=== PATIENT | male | born 2000 | race African-American/Black ===

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

== ENCOUNTER 2020-04-24 13:51 | Emergency (ER) | payer OTHER, SELFPAY ==
--- NOTE | 2020-04-24 14:41 | RAD ---
EXAM: Chest PA and lateral: HISTORY: Cough. Wheezing. COMPARISON: None FINDINGS: Heart: Normal cardiac silhouette Aorta: Unremarkable Pulmonary vessels: Normal Costophrenic angles: Costophrenic angles are clear. Lungs: No consolidation or masses. Pneumothorax: No pneumothorax Osseous structures: No osseous abnormalities IMPRESSION: No acute cardiopulmonary process.
== END 2020-04-24 14:58 | disposition home or self-care (01) ==
LOC: MADERS 13:51
DX: J02.9 Acute pharyngitis, unspecified (principal); J20.8 Acute bronchitis due to other specified organisms
CPT/HCPCS: 71046

== ENCOUNTER 2020-05-09 09:36 | Emergency (ER) | payer SELFPAY ==
[2020-05-09] MEDS ORDERED: Acetaminophen 500 MG TAB ONE (10:20)
[2020-05-09] MEDS ORDERED: Ibuprofen 800 MG TAB ONE (10:20)
--- NOTE | 2020-05-09 10:31 | RAD ---
PORTABLE CHEST 1 VIEW: Date: 05/09/2020 Time: 1030 hours HISTORY: Cough. COMPARISON: 04/24/2020. FINDINGS: The heart size is normal. The lungs are well expanded without focal areas of consolidation, pneumotho races, or pleural effusions. IMPRESSION: No radiographic evidence of acute cardiopulmonary process. POS: AH
[2020-05-10 00:34] LABS: SARS-CoV-2 MS2 Positive; SARS-CoV-2 N Gene Negative; SARS-CoV-2 S Gene Negative; SARS-CoV-2 by NAA Not Detected (NotDetected); SARS-CoV-2 orf1ab Negative
== END 2020-05-09 11:20 | disposition home or self-care (01) ==
LOC: MADERS 09:36
DX: J00 Acute nasopharyngitis [common cold] (principal); Z20.828 Contact with and (suspected) exposure to other viral communicable diseases
CPT/HCPCS: 71045; 87635; 87804; U0003

== ENCOUNTER 2020-07-07 14:20 | Emergency (ER) | payer SELFPAY ==
[2020-07-07] MEDS ORDERED: Ondansetron ODT 4 MG TAB ONE (14:43)
== END 2020-07-07 14:47 | disposition home or self-care (01) ==
LOC: MADERS 14:20
DX: R11.2 Nausea with vomiting, unspecified (principal)
CPT/HCPCS: 99283; Q0162

== ENCOUNTER 2020-07-20 15:20 | Emergency (ER) | payer SELFPAY ==
[2020-07-21 05:15] LABS: SARS-CoV-2 PCR by NAA Not Detected (NotDetected)
== END 2020-07-20 16:00 | disposition home or self-care (01) ==
LOC: MADERS 15:20
DX: R10.30 Lower abdominal pain, unspecified (principal); R19.7 Diarrhea, unspecified; Z20.822 Contact with and (suspected) exposure to COVID-19
CPT/HCPCS: 87635; 99284; U0003; U0005

== ENCOUNTER 2020-09-24 17:42 | Emergency (ER) | payer SELFPAY ==
[2020-09-24 18:30] LABS: ALT (SGPT) 18 U/L (8-55); AST (SGOT) 16 U/L (5-34); Acetaminophen Less than 6.0 mcg/mL (10.0-30.0); Albumin 4.6 g/dL (3.5-5.0); Alcohol Less than 10 mg/dL (Less than 10); Alkaline Phosphatase 89 U/L (50-130); Anion Gap 17 mmol/L (10-20); BUN (Urea Nitrogen) 9 mg/dL (8.9-20.6); Band 3 % (5-11); Bilirubin, Total 0.6 mg/dL (0.2-1.2); Calc. Creatinine Clearance 0 mL/min (70-130); Calcium 9.4 mg/dL (7.8-10.44); Carbon Dioxide 26 mmol/L (22-29); Chloride 104 mmol/L (98-107); Glucose 94 mg/dL (70-105); Hemoglobin 13.9 g/dL (14.0-18.0); Hypochromia SLIGHT = 6-15 cells (100X) (0-5/hpf); Lymphocytes 24 % (28-48); MDiff Complete? YES; Mean Corpuscular Hemoglobin 30.4 pg (25.0-35.0); Mean Corpuscular Volume 94.9 fL (78.0-98.0); Mean Platelet Volume 9.2 fL (7.4-10.4); Monocytes 11 % (0-4); Neutrophil 62 % (31-61); Platelet Count 246 thou/uL (130-400); Platelet Morphology Comment Appears Adequate; Potassium 3.8 mmol/L (3.5-5.1); Protein, Total 7.6 g/dL (6.0-8.3); RBC Distribution Width 11.1 % (11.5-14.5); Red Blood Cell (RBC) Count 4.57 mill/uL (4.00-5.20); Salicylate Less than 8.0 mg/dL (15.0-30.0); Sodium 143 mmol/L (136-145); White Blood Cell (WBC) Count 6.7 thou/uL (4.8-10.8)
[2020-09-24 18:36] LABS: Bilirubin Negative (Negative); Blood, Urine Negative (Negative); Clarity Clear (Clear); Glucose, Urine (Dipstick) Negative (Negative); Ketone, Urine Negative (Negative); Leukocyte Negative (Negative); Nitrite Negative (Negative); Protein, Urine (Dipstick) Negative (Neg-Trace)
[2020-09-24 19:12] LABS: Amphetamine Not Detected (NotDetected); Barbiturates Screen Not Detected (NotDetected); Benzodiazepine Screen Not Detected (NotDetected); Cocaine Metabolite Screen Not Detected (NotDetected); Medtox Control Line Valid? VALID (VALID); Methadone Not Detected (NotDetected); Methamphetamine Not Detected (NotDetected); Opiate Screen Not Detected (NotDetected); Oxycodone Screen Not Detected (NotDetected); Phencyclidine (PCP) Not Detected (NotDetected); THC/Cannabinoid Screen Detected (NotDetected); Tricyclic Screen Not Detected (NotDetected)
== END 2020-09-24 19:24 | disposition home or self-care (01) ==
LOC: MADERS 17:42
DX: I49.3 Ventricular premature depolarization (principal)
CPT/HCPCS: 71045; 80053; 80306; 80307; 81003; 84443; 84484; 85025; 93005; 94760

== ENCOUNTER 2020-11-12 23:23 | Emergency (ER) | payer OTHER, SELFPAY ==
[2020-11-12] MEDS ORDERED: Ondansetron ODT 4 MG TAB ONE (23:43)
== END 2020-11-12 23:56 | disposition home or self-care (01) ==
LOC: MADERS 23:23
DX: A08.4 Viral intestinal infection, unspecified (principal)
CPT/HCPCS: 99283; Q0162

== ENCOUNTER 2020-11-14 09:23 | Emergency (ER) | payer SELFPAY ==
[2020-11-14] MEDS ORDERED: Loperamide HCl 2 MG CAP ONE (10:06)
== END 2020-11-14 10:10 | disposition home or self-care (01) ==
LOC: MADERS 09:23
DX: A08.4 Viral intestinal infection, unspecified (principal)
CPT/HCPCS: 99283

== ENCOUNTER 2021-07-04 19:16 | Emergency (ER) | payer SELFPAY ==
[2021-07-04] MEDS ORDERED: Ondansetron ODT 4 MG TAB ONE (19:53)
== END 2021-07-04 20:15 | disposition home or self-care (01) ==
LOC: MADERS 19:16
DX: K52.9 Noninfective gastroenteritis and colitis, unspecified (principal); F17.210 Nicotine dependence, cigarettes, uncomplicated
CPT/HCPCS: 99283; Q0162

== ENCOUNTER 2022-05-22 23:51 | Emergency (ER) | payer SELFPAY ==
[2022-05-23] MEDS ORDERED: Ondansetron ODT 4 MG TAB ONE (00:20)
[2022-05-23 00:22] LABS: Bilirubin Negative (Negative); Blood, Urine Negative (Negative); Clarity Clear (Clear); Glucose, Urine (Dipstick) Negative (Negative); Ketone, Urine Negative (Negative); Leukocyte Negative (Negative); Nitrite Negative (Negative); Protein, Urine (Dipstick) Negative (Neg-Trace); Urobilinogen 0.2 mg/dL (Less than 2)
[2022-05-23 00:33] LABS: Amphetamine Not Detected (NotDetected); Barbiturates Screen Not Detected (NotDetected); Benzodiazepine Screen Not Detected (NotDetected); Cocaine Metabolite Screen Not Detected (NotDetected); Medtox Control Line Valid? VALID (VALID); Methadone Not Detected (NotDetected); Methamphetamine Not Detected (NotDetected); Opiate Screen Not Detected (NotDetected); Oxycodone Screen Not Detected (NotDetected); Phencyclidine (PCP) Not Detected (NotDetected); THC/Cannabinoid Screen Detected (NotDetected); Tricyclic Screen Not Detected (NotDetected)
== END 2022-05-23 01:13 | disposition home or self-care (01) ==
LOC: MADERS 23:51
DX: R10.84 Generalized abdominal pain (principal); R11.2 Nausea with vomiting, unspecified; F17.210 Nicotine dependence, cigarettes, uncomplicated
CPT/HCPCS: 80306; 81003; 99284; Q0162

== ENCOUNTER 2023-03-14 02:44 | Emergency (ER) | payer SELFPAY ==
[2023-03-14] MEDS ORDERED: Ondansetron ODT 4 MG TAB ONE (03:25)
[2023-03-14] MEDS ORDERED: Dicyclomine 10 MG CAP ONE (03:25)
== END 2023-03-14 03:30 | disposition home or self-care (01) ==
LOC: MADERS 02:44
DX: R10.13 Epigastric pain (principal); R11.2 Nausea with vomiting, unspecified
CPT/HCPCS: 99283; Q0162

== ENCOUNTER 2023-06-21 07:53 | Emergency (ER) | payer SELFPAY | END 2023-06-21 08:29 | disposition home or self-care (01) | LOC: MADERS 07:53 | DX: J02.9 Acute pharyngitis, unspecified (principal); R10.9 Unspecified abdominal pain; R09.82 Postnasal drip | CPT/HCPCS: 99283 ==

== ENCOUNTER 2023-08-25 12:20 | Emergency (ER) | payer SELFPAY ==
[2023-08-25] MEDS ORDERED: Ondansetron ODT 4 MG TAB ONE (12:32)
== END 2023-08-25 13:11 | disposition home or self-care (01) ==
LOC: MADERS 12:20
DX: J06.9 Acute upper respiratory infection, unspecified (principal); R11.2 Nausea with vomiting, unspecified
CPT/HCPCS: 87804; 99284; Q0162

== ENCOUNTER 2024-02-07 20:39 | Emergency (ER) | payer SELFPAY | END 2024-02-07 21:25 | disposition home or self-care (01) | LOC: MADERS 20:39 | DX: J02.9 Acute pharyngitis, unspecified (principal) | CPT/HCPCS: 87081; 87430; 99283 ==

== ENCOUNTER 2024-06-22 03:03 | Emergency (ER) | payer SELFPAY ==
[2024-06-22] MEDS ORDERED: Morphine 4 MG/ML VIAL ONE (03:16)
[2024-06-22 03:23] LABS: #Basophils 0.1 thou/uL (0.0-0.2); #Eosinophils 0.1 thou/uL (0.0-0.7); #Lymphocytes 2.7 thou/uL (1.20-3.40); #Monocytes 0.6 thou/uL (0.11-0.59); #Neutrophils 3.6 thou/uL (1.40-6.50); %Basophils 1.2 % (0.0-1.0); %Eosinophils 0.8 % (0.0-10.0); %Lymphocytes 38.1 % (21.0-51.0); %Neutrophils 50.9 % (42.0-75.0); Hemoglobin 13.4 g/dL (14.0-18.0); Mean Corpuscular Hemoglobin 29.5 pg (27.0-31.0); Mean Platelet Volume 6.6 fL (7.4-10.4); Platelet Count 337 10x3/uL (130-400); RBC Distribution Width 11.7 % (11.5-14.5); Red Blood Cell (RBC) Count 4.53 mill/uL (4.70-6.10); White Blood Cell (WBC) Count 7.1 10x3/uL (4.8-10.8)
[2024-06-22 03:41] LABS: Anion Gap 16 mmol/L (10-20); BUN (Urea Nitrogen) 9 mg/dL (8.9-20.6); Calc. Creatinine Clearance 0 mL/min (70-130); Calcium 9.5 mg/dL (7.8-10.44); Carbon Dioxide 21 mmol/L (22-29); Chloride 108 mmol/L (98-107); Estimated GFR 109; Glucose 135 mg/dL (70-105); Potassium 3.8 mmol/L (3.5-5.1); Sodium 141 mmol/L (136-145)
[2024-06-22] MEDS ORDERED: CEFAZOLIN 1 GM VIAL ONE (04:18)
[2024-06-22] MEDS ORDERED: Sodium Chloride 0.9% 100 ML ONE (04:18)
== END 2024-06-22 04:45 | disposition short-term general hospital (02) ==
LOC: MADERS 03:03
DX: S81.032A Puncture wound without foreign body, left knee, initial encounter (principal); S71.132A Puncture wound without foreign body, left thigh, initial encounter; W34.00XA Accidental discharge from unspecified firearms or gun, initial encounter; Y93.89 Activity, other specified
CPT/HCPCS: 80048; 85025; 96374; 96375; J0690; J2270

== ENCOUNTER 2024-07-15 21:16 | Emergency (ER) | payer OTHER ==
[2024-07-15] MEDS ORDERED: HYDROcodone/Acetaminophen 10/325 mg Tablet ONE (21:56)
== END 2024-07-15 22:25 | disposition home or self-care (01) ==
LOC: MADERS 21:16
DX: M25.562 Pain in left knee (principal)
CPT/HCPCS: 99283